=== PATIENT | female | born 1975 | race Caucasian/White ===

== ENCOUNTER 2017-02-15 03:31 | Observation (INO) | payer OTHER ==
[2017-02-15] MEDS ORDERED: NS 1,000 ML IV ONE ×2 (03:36→04:03)
[2017-02-15] MEDS ORDERED: ONDANSETRON 4 MG/2 ML VIAL IVP ONE ×2 (03:36→04:39)
--- NOTE | 2017-02-15 03:37 | EDPHY ---
H & P HPI/ROS: HPI CHIEF COMPLAINT: Nausea vomiting in HISTORY OF PRESENT ILLNESS: This patient very pleasant 41-year-old female, otherwise healthy no significant medical history she presents emergency room nausea vomiting since 530. She is [address]. 9 weeks. She is from [place]. She denies any fever. Denies chest pain or shortness of breath. She has nausea vomiting. She is status post cholecystectomy. She denies any abdominal pain vaginal bleeding or vaginal discharge or fluids. She denies any cramping. This is her 2nd . She did not have nausea vomiting in her 1st . Past Medical History: No significant medical history received IVF for her gestation. Past Surgical History: No recent surgical history except history of cholecystectomy Social History: Denies daily use of drugs alcohol tobacco products. Resides in [place]. Family History: Noncontributory ROS REVIEW OF SYSTEMS: A comprehensive 10 point review of systems is otherwise negative aside from elements mentioned in the history of present illness. Exam Constitutional appears well nontoxic, actively vomiting the room, triage nursing summary reviewed, vital signs reviewed, awake/alert. Eyes normal conjunctivae and sclera, EOMI, PERRLA. HENT normal inspection, atraumatic, moist mucus membranes, no epistaxis, neck supple/ no meningismus, no raccoon eyes. Respiratory clear to auscultation bilaterally, normal breath sounds, no respiratory distress, no wheezing. Cardiovascular rate normal, regular rhythm, no murmur, no edema, distal pulses normal. Gastrointestinal soft, non-tender, no rebound, no guarding, normal bowel sounds, no distension, no pulsatile mass. Genitourinary no CVA tenderness. Musculoskeletal no midline vertebral tenderness, full range of motion, no calf swelling, no tenderness of extremities, no meningismus, good pulses, neurovascularly intact. Skin pink, warm, & dry, no rash, skin atraumatic. Neurologic awake, alert and oriented x 3, AAOx3, moves all 4 extremities equally, motor intact, sensory intact, CN II-XII intact, normal cerebellar, normal vision, normal speech. Psychiatric normal mood/affect. Heme/Lymph/Immune no lymphadenopathy. Differential Diagnosis: Includes but is not limited to in a particular order hyperemesis gravidarum, electrolyte disturbance, dehydration, infection Medical Decision Making: Plan for this patient she has no abdominal pain or vaginal bleeding. Denies any cramping. She has persistent nausea vomiting. No belly pain. She will have an IV established with IV fluid bolus 2 L, IV Zofran for nausea check electrolytes. Urinalysis. Re-evaluate. Re-evaluation: 0647AM: I did re-evaluate this patient this time. She still very nauseous. She required 3 L of fluid. Multiple rounds of Zofran and Phenergan. Given how she feels I do feel that she should be admitted to the hospital for ongoing IV fluids and nausea control. She does not want to go home. 0710: This patient is still very nauseous. She will be admitted to the hospitalist service for IV fluids nausea control. Again she has no abdominal pain no vaginal bleeding no pelvic cramping. She is agree for admission. Source: Patient Constitutional: Initial Vital Signs Temperature (C) 36.8 C 02/15/17 03:56 Heart Rate 80 02/15/17 03:56 Respiratory Rate 16 02/15/17 03:56 Blood Pressure 132/75 H 02/15/17 03:56 O2 Sat (%) 98 02/15/17 03:56 O2 Delivery Mode Room Air Allergies/Adverse Reactions: No Known Allergies Allergy (Unverified 02/15/17 03:56) Home Medications: Medication Instructions Recorded Vit27&Calcium/Iron/FA 1 each PO DAILY 02/15/17 [] Progesterone, Micronized 200 mg VG TID 02/15/17 [Progesterone] Promethazine HCl [Phenergan 12.5mg 12.5 mg PO Q6H PRN #30 tablet 02/15/17 tab] Pyridoxine HCl [Vitamin B-6 25 mg 25 mg PO TID 02/15/17 (*)] metFORMIN HCL [Metformin HCl ER] 1,500 mg PO HS 02/15/17 Medical Decision Making - Data Points Laboratory Results: Laboratory Results 02/15/17 04:00 02/15/17 04:00 Medications Given: Discontinued Medications Sodium Chloride (Ns) 1,000 mls @ 0 mls/hr IV EDNOW ONE; Wide Open PRN Reason: Protocol Stop: 02/15/17 03:37 Last Admin: 02/15/17 04:13 Dose: 1,000 mls Sodium Chloride (Ns) 1,000 mls @ 0 mls/hr IV ONCE ONE PRN Reason: Wide Open Stop: 02/15/17 04:04 Last Admin: 02/15/17 04:37 Dose: 1,000 mls Sodium Chloride (Ns) 1,000 mls @ 125 mls/hr IV CONT PAULINA Stop: 08/14/17 09:29 Last Admin: 02/15/17 20:02 Dose: 1,000 mls Lorazepam (Ativan Injection) 0.5 mg IVP Q4H PRN PRN Reason: Anxiety, Unable to Take PO Stop: 08/14/17 19:30 Last Admin: 02/16/17 03:47 Dose: 0.5 mg Metformin HCl (Glucophage Xr) 1,500 mg PO HS PAULINA Stop: 08/14/17 20:59 Last Admin: 02/15/17 21:44 Dose: Not Given Metoclopramide HCl (Reglan Injection) 10 mg IVP Q6HRS PAULINA Stop: 08/14/17 08:59 Last Admin: 02/16/17 06:26 Dose: Not Given Miscellaneous Medication (Progesterone, Micronized [Progesterone]) 200 mg VG TID PAULINA Stop: 08/14/17 08:59 Last Admin: 02/16/17 08:54 Dose: 200 mg Ondansetron HCl (Zofran) 4 mg IVP EDNOW ONE Stop: 02/15/17 03:37 Last Admin: 02/15/17 04:13 Dose: 4 mg Ondansetron HCl (Zofran) 4 mg IVP EDNOW ONE Stop: 02/15/17 04:40 Last Admin: 02/15/17 04:40 Dose: 4 mg Prenat Multivit/[place]/Iron/Folic Ac () 1 each PO DAILY PAULINA Stop: 08/14/17 08:59 Last Admin: 02/16/17 08:54 Dose: Not Given Promethazine HCl (Phenergan) 12.5 mg IVP ONCE ONE Stop: 02/15/17 05:36 Last Admin: 02/15/17 05:48 Dose: 12.5 mg Promethazine HCl (Phenergan) 12.5 mg IVP Q6HRS PRN PRN Reason: Nausea/Vomiting, Can't Take PO Stop: 08/14/17 08:59 Last Admin: 02/15/17 11:53 Dose: 12.5 mg Pyridoxine HCl (Vitamin B-6) 25 mg PO TID PAULINA Stop: 08/14/17 08:59 Last Admin: 02/16/17 08:54 Dose: Not Given Departure - Departure Disposition: [facility] Inpatient Acute Clinical Impression: Hyperemesis gravidarum Condition: Fair
[2017-02-15 04:15] LABS: % IMMATURE GRANULYOCYTES 0.4 % (0.0-1.1); ABSOLUTE IMMATURE GRANULOCYTES 0.07 10^3/uL (0.00-0.10); ADD DIFF? NO; ADD MORPH? NO; ADD SCAN? NO; ATYPICAL LYMPHOCYTE FLAG 0 (0-99); FRAGMENT RBC FLAG 0 (0-99); HEMATOCRIT 38.5 % (38.0-47.0); HEMOGLOBIN 13.2 g/dL (12.6-16.3); LEFT SHIFT FLG 0 (0-99); LIPEMIA HEMOLYSIS FLAG 90 (0-99); MEAN CELL HEMOGLOBIN 29.2 pg (27.9-34.1); MEAN CELL HEMOGLOBIN CONCENTR. 34.3 g/dL (32.4-36.7); MEAN CELL VOLUME 85.2 fL (81.5-99.8); MEAN PLATELET VOLUME 11.8 fL (8.7-11.7); PLATELET CLUMPS FLAG 0 (0-99); PLATELET COUNT 336 10^3/uL (150-400); RED BLOOD CELL COUNT 4.52 10^6/uL (4.18-5.33); RED CELL DISTRIBUTION WIDTH 12.7 % (11.5-15.2)
[2017-02-15 04:29] LABS: ALANINE AMINOTRANSFERASE 33 IU/L (9-52); ALBUMIN 4.2 g/dL (3.5-5.0); ALKALINE PHOSPHATASE 131 IU/L (38-126); ANION GAP 12 mEq/L (8-16); ASPARTATE AMINOTRANSFERASE 22 IU/L (14-46); BILIRUBIN,TOTAL 0.6 mg/dL (0.1-1.4); BILIRUBIN-CONJUGATED 0.3 mg/dL (0.0-0.5); BILIRUBIN-UNCONJUGATED 0.3 mg/dL (0.0-1.1); CALCIUM 10.1 mg/dL (8.5-10.4); CARBON DIOXIDE 20 mEq/l (22-31); CHLORIDE 102 mEq/L (97-110); CREATININE 0.5 mg/dL (0.6-1.0); GLOMERULAR FILTRATION RATE > 60; GLUCOSE 147 mg/dL (70-100); POTASSIUM 3.8 mEq/L (3.5-5.2); SODIUM 134 mEq/L (134-144); TOTAL PROTEIN 7.4 g/dL (6.3-8.2)
[2017-02-15] MEDS ORDERED: PROMETHAZINE HCL 25 MG/ML INJ IVP ONE (05:35)
[2017-02-15 05:58] LABS: COLOR YELLOW; LEUKOCYTE ESTERASE,URINE NEGATIVE (NEGATIVE); NITRITE,URINE NEGATIVE (NEGATIVE)
[2017-02-15 06:02] LABS: MUCUS TRACE /lpf (NONE-1+)
[2017-02-15] MEDS ORDERED: ONDANSETRON 4 MG/2 ML VIAL IVP PRN (08:57)
[2017-02-15] MEDS ORDERED: ACETAMINOPHEN 325 MG TAB PO PRN (08:57)
[2017-02-15] MEDS ORDERED: ONDANSETRON DISINTEGRATING 4 MG TAB PO PRN (08:57)
[2017-02-15] MEDS ORDERED: PROMETHAZINE HCL 25 MG/ML INJ IVP PRN (09:00)
[2017-02-15] MEDS: METOCLOPRAMIDE 10 MG/2 ML VIAL IVP SCH ×4 (09:19→20:02)
--- NOTE | 2017-02-15 09:39 | GHP ---
[f rep st] HISTORY AND PHYSICAL DATE OF ADMISSION: 02/15/2017 CHIEF COMPLAINT: Intractable nausea, vomiting, . HISTORY OF PRESENT ILLNESS: A 41-year-old female here visiting for work from [place], who is presenting with intractable nausea and vomiting since last evening at 5 p.m. She is 9 weeks , status post IVF. She denies fevers, chills, or sweats. No chest pain or shortness of breath. No diarrhea. No abdominal pain, vaginal bleeding or discharge. No myalgias. This is her 2nd . No issues with the first. She does have daily nausea at home, but this is relieved by a nap. REVIEW OF SYSTEMS: I completed a 10-point review of systems, negative except as noted in the HPI. PAST MEDICAL HISTORY: Just IVF. PAST SURGICAL HISTORY: Cholecystectomy and breast tissue removal. 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 No alcohol, tobacco, or illicits. FAMILY HISTORY: None. ALLERGIES: None. HOME MEDICATIONS: See medication reconciliation. PHYSICAL EXAMINATION: VITAL SIGNS: Temperature 37.0, blood pressure 144/92, heart rate in the 80s, respirations 18, 100% on room air. GENERAL: Tired- appearing. HEENT: PERRLA. Dry mucous membranes. CV: Regular rate and rhythm. No murmurs, gallops, rubs. LUNGS: Clear to auscultation bilaterally. ABDOMEN: Soft, nontender, nondistended. Positive bowel sounds. : No suprapubic tenderness. MUSCULOSKELETAL: 5/5 upper and lower extremities strength. NEURO: 2 through 12 intact. PSYCH: Alert and oriented x3. LABS: UA +2 glucose, no blood, no protein. Sodium 134, potassium 3.8, chloride 102, carbon dioxide 20, BUN 8, creatinine 0.8, glucose 147. LFTs normal. CBC 16, hemoglobin 13, hematocrit 38, platelets 336. ASSESSMENT AND PLAN: 1. Intractable nausea and vomiting: due to . No evidence of infection. Will treat with IV fluids, p.r.n. Reglan and Phenergan. Can trial diphenhydramine as well. 2. Leukocytosis: Stress inflammation with nausea, vomiting, dehydration. No evidence of infection. UA is negative. Denies other infectious symptoms. 3. Elevated blood pressure. Suspect secondary to retching in the emergency room. We will monitor closely to ensure no preeclampsia. No proteinuria. 4. Diet regular. 5. Deep venous thrombosis prophylaxis, low risk. 6. Disposition: Patient warrants observation admission given acute intractable nausea, vomiting warranting IV fluids and IV antiemetics. /[id number]/MODL MTDD
[2017-02-15] MEDS: NS 1,000 ML IV SCH ×2 (09:50→20:02)
[2017-02-15] MEDS: PYRIDOXINE HCL 25 MG TAB PO SCH (10:00)
[2017-02-15] MEDS: Progesterone, Micronized [Progesterone] 200 MG VG SCH ×2 (12:00→20:00)
[2017-02-15] MEDS ORDERED: *PHM DO NOT USE-LORazepam 1 MG/ML IV NEWBORN SYR IV PRN (19:28)
[2017-02-15 20:08] VITALS: O2SAT 99
[2017-02-15] MEDS ORDERED: metFORMIN SR 750 MG TAB.SR PO SCH (21:00)
[2017-02-15] MEDS: LORazepam 2 MG/ML INJ IVP PRN (21:33)
[2017-02-16] MEDS: LORazepam 2 MG/ML INJ IVP PRN (03:47)
[2017-02-16] MEDS: METOCLOPRAMIDE 10 MG/2 ML VIAL IVP SCH ×2 (06:25→06:26)
[2017-02-16 06:46] LABS: HEMATOCRIT 34.1 % (38.0-47.0); HEMOGLOBIN 11.9 g/dL (12.6-16.3); MEAN CELL HEMOGLOBIN 29.9 pg (27.9-34.1); MEAN CELL HEMOGLOBIN CONCENTR. 34.9 g/dL (32.4-36.7); MEAN CELL VOLUME 85.7 fL (81.5-99.8); RED BLOOD CELL COUNT 3.98 10^6/uL (4.18-5.33); RED CELL DISTRIBUTION WIDTH 13.1 % (11.5-15.2)
[2017-02-16] MEDS: PRENATAL VIT 1 EACH TAB PO SCH ×2 (07:07→08:54)
[2017-02-16] MEDS: Progesterone, Micronized [Progesterone] 200 MG VG SCH ×2 (07:08→08:54)
[2017-02-16] MEDS: PYRIDOXINE HCL 25 MG TAB PO SCH ×2 (07:09→08:54)
[2017-02-16 09:46] VITALS: BP 155/99; PULSE 84; RESP 17; TEMP 97.9
--- NOTE | 2017-02-16 11:24 | HOSPPROG ---
Hospitalist Progress Note Assessment/Plan: #Nausea/vomitin/ . Afebrile. Denies infectious sx. UA negative. Still not taking in much oral intake. Offered additional day for IV hydration, but she declined and wants to make her flight. PRN Phenergan #: FU with [employer] at home #Leukocytosis: 16, no fever. UA neg. Stress reaction with N/V. No other infectious sxs #HTN: at admit, but normalized. No protein in UA DC today Subjective: min nausea this morning. Wants to go home Objective: Vital Signs Temp Pulse Resp BP Pulse Ox 36.6 C 84 17 155/99 H 99 02/16/17 08:00 02/16/17 08:00 02/16/17 08:00 02/16/17 08:00 02/16/17 08:00 Laboratory Results 02/16/17 06:34 02/15/17 02/16/17 02/17/17 05:59 05:59 05:59 Intake Total 4000 Output Total 50 Balance 3950 - Physical Exam Constitutional: other (tired-appearing) Ears, Nose, Mouth, Throat: moist mucous membranes Cardiovascular: regular rate and rhythym, no murmur, rub, or gallop Respiratory: no respiratory distress Gastrointestinal: normoactive bowel sounds Skin: normal color Neurologic: AAOx3, CN II-XII Intact Psychiatric: interacting appropriately ICD10 Worksheet Patient Problems: Problems Problem Status Onset Hyperemesis gravidarum Acute
--- NOTE | 2017-02-16 11:58 | GDS ---
[f rep st] DISCHARGE SUMMARY DISCHARGE DIAGNOSES: 1. Intractable nausea, vomiting. 2. in vitro with twins. 3. Leukocytosis. HISTORY OF PRESENT ILLNESS: A 41-year-old female here visiting for work from [place] who has h ad intractable nausea, vomiting since 5 days prior to admission. She is 9 weeks' with IVF. No fevers, chills, or sweats. No chest pain. No cough. No diarrhea. No vaginal bleeding or disch arge or myalgias. This is her 2nd . She does report daily nausea that is relieved by a nap . HOSPITAL COURSE BY PROBLEM: 1. Intractable nausea, vomiting: Likely secondary to . No evidence of infection. The whi te count was elevated at 16, but afebrile. UA was normal. No other infectious symptoms. Improved w ith antiemetics and hydration. She is provided a script for Phenergan. 2. Leukocytosis. WBC was elevated at 16. Again, afebrile. No infectious symptoms. UA was negativ e. 3. Elevated blood pressure. This was at initial admission. Suspect secondary to stress. This has normalized. There was no proteinuria on UA. DISPOSITION: Patient is still taking minimal oral intake. I offered her an additional night here to continue IV hydration, but she declined and wants to get home. I recommend that she follows up with either her PCP or her Loan Clerk right away this week for repeat CBC. MEDICATIONS: New medication is Phenergan p.r.n. FOLLOWUP: 1. PCP or Loan Clerk. 2. Repeat CBC. /[id number]/MODL
== END 2017-02-16 10:00 | disposition home or self-care (01) ==
LOC: FOB 08:21
PROVIDERS: ADMIT Family Medicine; ATTEND Family Medicine
DX: O21.9 Vomiting of pregnancy, unspecified (principal); O09.812 Supervision of pregnancy resulting from assisted reproductive technology, second trimester; O09.522 Supervision of elderly multigravida, second trimester; O30.002 Twin pregnancy, unspecified number of placenta and unspecified number of amniotic sacs, second trimester; Z3A.22 22 weeks gestation of pregnancy
CPT/HCPCS: G0378 ×2; J2060; J2405; J2550; J2765